=== PATIENT | female | born 1935 | race Two or more races ===

== ENCOUNTER 2018-01-18 01:34 | Inpatient (IN) | payer MEDICARE, OTHER ==
[~2018-01-18] VITALS: Ht 157.5 cm; Wt 65.3 kg
--- NOTE | 2018-01-18 01:40 | NUR ---
82 yo female bb ra from home. patient is alert and oriented, Arminian speaking. Per EMS, patient had a syncope episode while using the restroom. no trauma noted, skin warm and dry, resp even and unlabored. awaiting orders from provider, will continue to monitor
[2018-01-18] MEDS ORDERED: IV NS 0.9% 1,000 ML BAG IV ONE (02:00)
--- NOTE | 2018-01-18 02:04 | NUR ---
LAB AT BED SIDE FOR BLOOD DRAW
--- NOTE | 2018-01-18 02:14 | NUR ---
PATIENT TRANASPORTED TO CT VIA GURNEY BY HOUSE STEWARD/STEWARDESS
[2018-01-18 02:46] LABS: BASOPHILS % (AUTO) 0.4 % (0.0-2.0); HEMATOCRIT 29 % (33-45); HEMOGLOBIN 9.8 g/dL (11.5-14.8); LYMPHOCYTES # (AUTO) 2.5 /CMM (0.8-4.8); LYMPHOCYTES % (AUTO) 34.5 % (20.0-44.0); MEAN CORPUSCULAR HEMOGLOBIN 29 PG (26.0-33.0); MEAN CORPUSCULAR HGB CONC 33 g/dl (31.0-36.0); MEAN CORPUSCULAR VOLUME 87 fL (82-100); MONOCYTES # (AUTO) 0.6 /CMM (0.1-1.30); MONOCYTES % (AUTO) 8.3 % (2.0-12.0); NEUTROPHILS # (AUTO) 3.9 /CMM (1.8-8.9); NEUTROPHILS % (AUTO) 53.8 % (43.0-81.0); PLATELET COUNT (AUTO) 271 /CMM (150-450); RDW COEFFICIENT OF VARIATION 15.6 (11.5-15.0); RED BLOOD CELL COUNT(AUTO) 3.35 MIL/uL (4.0-5.2); WHITE BLOOD COUNT (AUTO) 7.2 K/uL (4.3-11.0)
[2018-01-18 03:00] LABS: INR 1.05 (0.87-1.13)
[2018-01-18 03:06] LABS: CALCIUM, SERUM 8.5 mg/dL (8.5-10.1); CARBON DIOXIDE 24 mmol/L (21-32); CHLORIDE 108 mmol/L (98-107); CREATININE 1.8 mg/dL (0.6-1.3); GLUCOSE 129 mg/dL (74-106); SODIUM SERUM 141 mmol/L (136-145); UREA NITROGEN, BLOOD 41 mg/dL (7-18)
--- NOTE | 2018-01-18 03:11 | NUR ---
VITAL SIGNS UPDATED.
[2018-01-18 03:12] LABS: ALANINE AMINOTRANSFERASE 31 U/L (12-78); ALBUMIN 3.3 g/dL (3.4-5.0); ALKALINE PHOSPHATASE 128 U/L (46-116); ASPARTATE AMINOTRANSFERASE 24 U/L (15-37); BILIRUBIN,DIRECT 0.1 mg/dL (0.0-0.2); BILIRUBIN,TOTAL 0.3 mg/dL (0.2-1.0); TOTAL PROTEIN, SERUM 6.8 g/dL (6.4-8.2)
--- NOTE | 2018-01-18 03:48 | NUR ---
REPORT GIVEN TO KELSEY
[2018-01-18] MEDS ORDERED: ASPIRIN 325 MG TABLET PO ONE (04:00)
[2018-01-18] MEDS ORDERED: NITROGLYCERIN 0.4 MG/TAB BOTTLE SL PRN (04:00)
[2018-01-18] MEDS ORDERED: ONDANSETRON HCL/PF 4 MG/2 ML VIAL IVP PRN (04:00)
[2018-01-18] MEDS ORDERED: NITROGLYCERIN PACKET 1 GM PACKET TD PRN (04:00)
[2018-01-18] MEDS ORDERED: MORPHINE SULFATE INJ 2 MG/ML DISP.SYRIN IV PRN (04:00)
--- NOTE | 2018-01-18 04:00 | NUR ---
RN NOTES PATIENT BROUGHT TO UNIT BY ER STAFF, IN STABLE CONDITION, ALERT AND ORIENTED X 4, GRAND DAUGHTER, PONCHO AT BEDSIDE. PT NOTED WITH NO SOB, BREATHING EVEN AND UNLABORED, DENIES PAIN AND IN NO ACUTE DISTRESS. ORIENTED PT AND GRAND DAUGHTER TO UNIT, ADMISSION PROCESS, CALL LIGHT AND USE OF CALL LIGHT AND PT VERBALIZED UNDERSTANDING. ALL PATIENT'S NEEDS ATTENDED TO AT THIS TIME. WILL CONTINUE TO MONITOR PT.
[2018-01-18] MEDS ORDERED: ASPIRIN 325 MG TABLET ONE (04:05)
--- NOTE | 2018-01-18 04:20 | NUR ---
RN NOTES RECEIVED ORDER FROM MELISSA HOLMAN TO ADMIT PT TO TELE TD. CHARGE NURSE CLARIFIED ORDER WITH ASSOCIATE ENGINEER AND NOTIFIED HER THAT PT IS NOW IN MS/TELE FLOOR. PER ASSOCIATE ENGINEER PATIENT WILL BE ADMITTED TO TELE-TD. WAITING FOR BED IN [place].
--- NOTE | 2018-01-18 04:40 | NUR ---
RN NOTES GAVE REPORT TO BALA ARVIZU FOR CONTINUITY OF CARE. PT WILL GO TO RM 114-1.
[2018-01-18 05:04] VITALS: BP 96/54
[2018-01-18] MEDS ORDERED: SACU1TAB7 PO ×2 (05:12→05:17)
[2018-01-18] MEDS ORDERED: FURO20TA4 PO ×2 (05:13→05:21)
[2018-01-18] MEDS ORDERED: APIX2.5T PO (05:21)
[2018-01-18] MEDS ORDERED: CARV12.52 PO (05:26)
[2018-01-18] MEDS ORDERED: CLOP75TA15 PO (05:29)
[2018-01-18] MEDS ORDERED: ATOR80TA PO (05:30)
[2018-01-18] MEDS: IV NS 0.9% 1,000 ML IV SCH (05:36)
[2018-01-18 07:06] LABS: B-TYPE NATRIURETIC PEPTIDE 2322 PG/ML (0-125); CALCIUM, SERUM 8.2 mg/dL (8.5-10.1); CARBON DIOXIDE 22 mmol/L (21-32); CHLORIDE 109 mmol/L (98-107); CREATININE 1.6 mg/dL (0.6-1.3); GLUCOSE 105 mg/dL (74-106); SODIUM SERUM 142 mmol/L (136-145); UREA NITROGEN, BLOOD 39 mg/dL (7-18)
--- NOTE | 2018-01-18 07:15 | NUR ---
RN [place] INITIAL NOTES RECEIVED PT FROM PM NURSE, PT RESTING AND SLEEPING IN BED AT THIS TIME, A&O X4 AZERI SPEAKING, LEFT EYE SHUT CLOSED, LT HAND 20 G IV SITE RUNNING FLUIDS, NO INFILTRATION NOTED OR REDNESS, ON RA SAT ABOVE 95% NO SOB NOTED. ON TELE MON SR WITH HR 70, WILL CONTINUE TO MONITOR.
[2018-01-18 07:20] LABS: IRON, SERUM 41 ug/dl (50-175); TOTAL IRON BINDING CAPACITY 276 ug/dl (250-450)
[2018-01-18 08:00] VITALS: BP 118/64
[2018-01-18] MEDS ORDERED: ASPIRIN 81 MG TAB.CHEW PO SCH (09:00)
[2018-01-18] MEDS ORDERED: MORPHINE SULFATE INJ 4 MG/ML DISP.SYRIN IV PRN (09:06)
[2018-01-18] MEDS: CLOPIDOGREL BISULFATE 75 MG TABLET PO SCH ×2 (10:00→12:42)
[2018-01-18] MEDS ORDERED: APIXABAN 2.5 MG TABLET PO ONE (11:00)
[2018-01-18 12:00] VITALS: BP 125/70
[2018-01-18] MEDS: CARVEDILOL 12.5 MG TABLET PO SCH ×2 (12:41→16:02)
[2018-01-18] MEDS: ENTRESTO PO SCH ×2 (14:30→17:21)
[2018-01-18 16:00] VITALS: BP 125/70
[2018-01-18] MEDS ORDERED: ELIQUIS 2.5 MG PO SCH (17:00)
[2018-01-18] MEDS ORDERED: APIXABAN 2.5 MG TABLET PO SCH (17:00)
[2018-01-18] MEDS ORDERED: ACETAMINOPHEN 325 MG TABLET PO PRN (17:00)
--- NOTE | 2018-01-18 18:14 | NUR ---
EXAMINING OFFICER NOTES WILL NEED TO CALL DR WIGGINS PTS OWN PRODUCE WRAPPER REGARDING CT OF CHEST, PT STATED SHE ALREADY HAD CT CHEST DONE ONE WEEK AGO, DR WIGGINS OFFICE NUMBER IS [phone]., WILL F/U
--- NOTE | 2018-01-18 19:07 | NUR ---
COMMERCIAL COORDINATOR ENDING NOTES PT STABLE RESTING IN BED, NO ACUTE CHANGES NOTED, ALL DUE MEDS GIVEN, WILL CONTINUE TO MONITOR. REPORT GIVEN TO PM NURSE.
[2018-01-18 20:00] VITALS: BP 117/65
[2018-01-18] MEDS: ELIQUIS 2.5 MG PO SCH (20:00)
--- NOTE | 2018-01-18 20:02 | NUR ---
RN NOTES RECEIVED PATIENT AWAKE IN BED WITH FAMILY AT BEDSIDE. NO DISTRESS NOTED. ROOM AIR WELL TOLERATED. BREATHING EVEN AND UNLABORED. ALERT AND ORIENTED. VERBALLY ABLE TO COMMUNICATE NEEDS. NO COMPLAINT OF PAIN OF THIS TIME. KEPT CLEAN AND DRY. WILL CONTINUE TO MONITOR.
[2018-01-18] MEDS ORDERED: ATORVASTATIN 40 MG TABLET PO SCH (22:00)
[2018-01-18] MEDS ORDERED: SIMVASTATIN 20 MG TABLET PO SCH (22:00)
[2018-01-19] VITALS: BP 109/45
[2018-01-19] MEDS: IV NS 0.9% 1,000 ML IV SCH (01:54)
[2018-01-19 04:00] VITALS: BP 112/56
[2018-01-19 05:41] VITALS: BP 112/56
[2018-01-19 06:08] LABS: BASOPHILS % (AUTO) 0.6 % (0.0-2.0); EOSINOPHILS % (AUTO) 4.2 % (0.0-6.0); HEMATOCRIT 28 % (33-45); HEMOGLOBIN 9.6 g/dL (11.5-14.8); LYMPHOCYTES # (AUTO) 2.4 /CMM (0.8-4.8); LYMPHOCYTES % (AUTO) 34.7 % (20.0-44.0); MEAN CORPUSCULAR HEMOGLOBIN 30 PG (26.0-33.0); MEAN CORPUSCULAR HGB CONC 34 g/dl (31.0-36.0); MEAN CORPUSCULAR VOLUME 87 fL (82-100); MONOCYTES # (AUTO) 0.5 /CMM (0.1-1.30); MONOCYTES % (AUTO) 7.7 % (2.0-12.0); NEUTROPHILS # (AUTO) 3.7 /CMM (1.8-8.9); NEUTROPHILS % (AUTO) 52.8 % (43.0-81.0); PLATELET COUNT (AUTO) 275 /CMM (150-450); RDW COEFFICIENT OF VARIATION 15.5 (11.5-15.0); RED BLOOD CELL COUNT(AUTO) 3.26 MIL/uL (4.0-5.2)
[2018-01-19 06:18] LABS: CHOLESTEROL 145 mg/dL (<200); HDL CHOLESTEROL 48 mg/dL (40-60); LDL 89 mg/dL (0-99); TRIGLYCERIDES 66 mg/dL (30-150)
[2018-01-19 06:27] LABS: CALCIUM, SERUM 8.8 mg/dL (8.5-10.1); CARBON DIOXIDE 21 mmol/L (21-32); CHLORIDE 114 mmol/L (98-107); CREATININE 1.1 mg/dL (0.6-1.3); GLUCOSE 114 mg/dL (74-106); MAGNESIUM 2.2 mg/dL (1.8-2.4); POTASSIUM 4.1 mmol/L (3.5-5.1); SODIUM SERUM 146 mmol/L (136-145); UREA NITROGEN, BLOOD 27 mg/dL (7-18)
[2018-01-19 06:46] LABS: PHOSPHORUS 3.3 mg/dL (2.5-4.9)
--- NOTE | 2018-01-19 06:57 | NUR ---
RN CLOSING NOTES ALERT AND ORIENTED, IN BED RESTING COMFORTABLY WITH NO COMPLAINT OF PAIN OR DISCOMFORT. NO DISTRESS NOTED. BREATHING EVEN AND UNLABORED. VITAL SIGNS WNL. NEEDS ATTENDED. KEPT CLEAN AND DRY. WILL ENDORSE TO AM SHIFT FOR CONTINUITY OF CARE.
--- NOTE | 2018-01-19 07:00 | NUR ---
RN MS INITIAL NOTES RECEIVED PT FROM PM NURSE, PT RESTING IN BED AND SLEEPING AT THIS TIME, NO SIGNS OR DISTRESS OR SOB, ON RA SAT ABOVE 97%, A&O X4 CAMEROONIAN SPEAKING, LT HAND 20 G IV SITE INTACT BUT REFUSES IV FLUIDS, ON TELE MON SR WITH HR 70, BRP, NO SIGNS OF DIZZINESS, WILL CONTINUE TO MONITOR, SPOKE WITH DR WIGGINS HER RF ENGINEER AND STATED WILL NEED PT TO VISIT HER AFTER SHE LEAVES THE HOSPITAL AND STATED NO NEED FOR CT OF CHEST, REFFERED TO PATIENT AND FAMILY SO PT IS AWARE, ALL SAFETY MEASURES INITIATED.
[2018-01-19 08:00] VITALS: BP 133/64
[2018-01-19] MEDS: CLOPIDOGREL BISULFATE 75 MG TABLET PO SCH (08:28)
[2018-01-19] MEDS: ENTRESTO PO SCH (08:28)
[2018-01-19] MEDS: ELIQUIS 2.5 MG PO SCH (08:29)
[2018-01-19] MEDS: CARVEDILOL 12.5 MG TABLET PO SCH (08:32)
[2018-01-19 08:52] VITALS: BP 133/64
[2018-01-19] MEDS ORDERED: IV NS 0.9% 1,000 ML IV PRN (10:09)
--- NOTE | 2018-01-19 13:39 | NUR ---
RN MS CLOSING NOTES DC PAPERWORK SIGNED AND COMPLETED. 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 PT LEFT WITH FAMILY.
== END 2018-01-19 14:30 | disposition home or self-care (01) | DRG 682 ==
LOC: ER 01:37 → TELE 03:54 → TELE-TD 04:47 → TELE1 17:00 → MEDSG1 01-19 09:38
PROVIDERS: ADMIT Registered Nurse; ATTEND Registered Nurse
DX: N17.0 Acute kidney failure with tubular necrosis (principal); I21.A1 Myocardial infarction type 2; E44.1 Mild protein-calorie malnutrition; I13.0 Hypertensive heart and chronic kidney disease with heart failure and stage 1 through stage 4 chronic kidney disease, or unspecified chronic kidney disease; R55 Syncope and collapse; Z86.73 Personal history of transient ischemic attack (TIA), and cerebral infarction without residual deficits; E86.9 Volume depletion, unspecified; D63.8 Anemia in other chronic diseases classified elsewhere; I25.10 Atherosclerotic heart disease of native coronary artery without angina pectoris; F03.90 Unspecified dementia, unspecified severity, without behavioral disturbance, psychotic disturbance, mood disturbance, and anxiety; N18.9 Chronic kidney disease, unspecified; E78.5 Hyperlipidemia, unspecified; Z95.5 Presence of coronary angioplasty implant and graft; M19.90 Unspecified osteoarthritis, unspecified site; I50.9 Heart failure, unspecified; E88.09 Other disorders of plasma-protein metabolism, not elsewhere classified; Z68.26 Body mass index [BMI] 26.0-26.9, adult
CPT/HCPCS: 36415; 70450-TC; 71045-TC; 80048-TC; 80061-TC; 80076-TC; 82728-TC; 82962-TC; 83540-TC; 83735-TC; 83880; 84100-TC; 84443-TC; 84484-TC; 85025-TC; 85730-TC; 87081-TC; 93307-TC; 93880-TC; A4606; J7030; Z7610